=== PATIENT | male | born 1960 | race Caucasian/White ===

== ENCOUNTER 2018-02-06 12:00 | Observation (INO) | payer OTHER ==
[~2018-02-06] VITALS: Ht 175.3 cm; Wt 71.4 kg
[2018-02-06] MEDS ORDERED: SODIUM CHLORIDE 0.9% 1000ML 1,000 ML IV STA (12:19)
[2018-02-06] MEDS ORDERED: LIDOCAINE 1% BUFFERED INJ 20 ML VIAL INFIL ONE (12:30)
[2018-02-06] MEDS ORDERED: DOXY-300 PO (12:36)
[2018-02-06] MEDS ORDERED: ASPI81TA28 PO (12:36)
[2018-02-06 12:38] LABS: BASO % 0.2 %; BASO ABS # 0.02 K/uL (0-0.2); EOS % 0.1 %; EOS ABS # 0.01 K/uL (0-0.5); HEMATOCRIT 51.7 % (42-52); HEMOGLOBIN 18.1 g/dL (14.0-18.0); IG# 0.03 K/uL (0.00-0.02); LYMPH % 18.8 %; LYMPH ABS # 1.72 K/uL (1.2-3.4); MEAN CELL VOLUME 98.1 fL (80-100); MEAN CORPUSCULAR HEMOGLOBIN 34.3 pg (25-34); MEAN PLATELET VOLUME 9.6 fL (7.4-10.4); MONO % 6.5 %; NEUT % 74.1 %; NEUT ABS # 6.79 K/uL (1.4-6.5); PLATELET COUNT 212 K/uL (130-400); RED CELL DISTRIBUTION WIDTH CV 13.5 % (11.5-14.5); RED CELL DISTRIBUTION WIDTH SD 48.5 fL (36.4-46.3); WHITE BLOOD COUNT 9.17 K/uL (4.8-10.8)
--- NOTE | 2018-02-06 12:48 | DIAGNOSTIC IMAGING REPORT ---
CHEST ONE VIEW PORTABLE CLINICAL HISTORY: Altered mental status, weakness. Encephalopathy. COMPARISON STUDY: No previous studies for comparison. FINDINGS: The cardiac and mediastinal contours are normal. There is no evidence of focal pulmonary consolidation. There is no evidence of failure. No pleural effusions are visualized.[ IMPRESSION: No active disease in the chest. Electronically signed by: Barry Foster M.D. 02/06/2018 12:46 PM Dictated Date/Time: 02/06/2018 12:46 PM
[2018-02-06 12:51] LABS: INR 0.9 (0.9-1.1); PTT PATIENT 23.9 SECONDS (21.0-31.0)
[2018-02-06 13:05] LABS: ALBUMIN 3.7 gm/dl (3.4-5.0); ALKALINE PHOSPHATASE 92 U/L (45-117); ALT/SGPT 38 U/L (12-78); AST/SGOT 41 U/L (15-37); BLOOD UREA NITROGEN 10 mg/dl (7-18); CALCIUM 8.9 mg/dl (8.5-10.1); CARBON DIOXIDE 26 mmol/L (21-32); CKMB < 1.0 ng/ml (0.5-3.6); CREATININE 0.85 mg/dl (0.60-1.40); GLUCOSE 96 mg/dl (70-99); LIPASE 139 U/L (73-393); POTASSIUM 4.1 mmol/L (3.5-5.1); SODIUM 137 mmol/L (136-145); TOTAL PROTEIN 7.4 gm/dl (6.4-8.2)
--- NOTE | 2018-02-06 13:15 | DIAGNOSTIC IMAGING REPORT ---
HEAD WITHOUT CONTRAST (CT) CLINICAL HISTORY: 57 years-old Male with EVALUATE ALTERED MENTAL STATUS/WEAKNESS. Acute weakness with altered mental status TECHNIQUE: Multiple axial CT images of the head were obtained without contrast. A dose lowering technique was utilized adhering to the principles of ALARA. CT DOSE: 1380.10 mGycm COMPARISON: None. FINDINGS: No acute intracranial hemorrhage, midline shift, intracranial mass, hydrocephalus, territorial ischemia or abnormal extra-axial collection. Blayne cisterna magna. The calvarium is intact. Trace fluid within the mastoid air cells. Right mastoid air cells are clear. Mild mucosal thickening of the left sphenoid, left maxillary and bilateral ethmoid sinuses. Skull and soft tissues are unremarkable. The orbits are within normal limits. IMPRESSION: 1. No acute intracranial abnormality. 2. Mild paranasal sinus disease. The above report was generated using voice recognition software. It may contain grammatical, syntax or spelling errors. Electronically signed by: Baldo Mae M.D. 02/06/2018 1:14 PM Dictated Date/Time: 02/06/2018 1:10 PM
[2018-02-06 13:31] LABS: CSF GLUCOSE 60 mg/dl (40-70); CSF TOTAL PROTEIN 55.3 mg/dl (15.0-45.0)
[2018-02-06] MEDS ORDERED: IV FLUIDS COMPLETED PRN (15:45)
[2018-02-06] MEDS ORDERED: OPTIRAY 320 IV PRN (16:15)
--- NOTE | 2018-02-06 16:44 | History and Physical ---
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 History of Present Illness Source: patient, friend (lady friend) This is a 57-year-old white male, who is under recent care of Dr. Gómez Loving , with no significant past medical history who presents to [facility] with confusion x 2.5-3 weeks. He has not followed with a physician for many years. Of significant note back on 01/14/18 he presented to PCP secondary to headaches, myalgias, joint aches, chest pain, sob. Patient had thorough workup which included Lyme panel which was positive for IgG 10 bands and + IgM, CT brain on 01/20 which was relatively unremarkable, MRI on brain which showed are 2.8cm posterior fossa cyst, likely arachnoid cyst, increased periventricular white matter likely small vessel ischemic disease, mild sinusitis, vitamin B12 525, negative JAMESON, rheumatoid factor 11, vitamin D 59, H&H 17.9 and 53.8, white blood cell count 7.5, AST 54 sodium 141, potassium 4.8, BUN 9, creatinine 0.8, glucose 92. He denies history of tick or insect bite. He was employed through [email or web address] but has been off work since December. He was sent to neurology for further evaluation secondary to headaches, positive MRI by neurology Dr. Haider Lynne seen today and patient was observed to be confused. Confusion has been reported for the past 2-2.5 weeks therefore patient was sent to ED for further workup for possible Lyme encephalitis. Lady friend is at bedside, provides some history. Apparently over the past 2-2.5 weeks patient has become more confused, not acting himself, difficulty with short-term memory and activities of daily living. Per friend he has been getting lost, usually he is very neat and his house is a mass, staggering gait. Patient states he has not been himself since October which he took a week off from work symptoms seemed to go away. They came back in November therefore whenever he got "a medical card," he pursued medical attention. He further notes first thing when he wakes up in the morning drinks coffee he gets frontal headache, sweating, nausea that comes and goes. Overall he does not sleep well, decreased appetite, blurred vision increasing the past 2 weeks, he recently got new glasses but has not had an eye exam in over 2 years. He denies any fever, chills, lightheadedness, dizziness, upper respiratory symptoms , chest pain, palpitations, sob, knox, nausea, vomiting, diarrhea, abdominal pain. When asked about tobacco and alcohol use initially he stated that he would drink occasionally, with further investigation he stated he went to the club daily and will drink approximately 12-18 beers a week on average. His last drink was when starting his antibiotic on January 15, he has one dose of doxycycline left. Upon initial evaluation workup revealed unremarkable CMP except AST elevation 41, troponin, CK, lipase all within range, hemoglobin 18.1. LP was performed which showed elevated protein of 55.3, Gram stain is pending. Initial Lyme titer positive. Chest x-ray negative for acute disease and head CT showing mild paranasal disease but otherwise unremarkable. He is being admitted for further workup of encephalopathy. Past Medical/Surgical History Medical Problems: (1) Degenerative disc disease Status: Chronic (2) Hyperlipemia Status: Chronic (3) Tobacco abuse Status: Chronic Surgical Problems: (1) History of tonsillectomy Status: Chronic (2) History of tooth extraction Permanent Comment: top and bottom dentures Status: Chronic Family History Patient reports no known family medical history. FH: Father was alcoholic. "Had kidney and liver issues." Mother: from CHF and emphysema Social History Smoking Status: Current Every Day Smoker (approx 40pack year hx) Smokeless Tobacco Use: No Alcohol Use: occasionally (12-18 beers a week on average, "goes to the club daily.") Drug Use: marijuana (remote history, no recent use. ) Marital Status: single (but has a "lady friend.") Housing status: lives alone Occupational Status: unemployed (Up until December patient working for [email or web address]) Immunizations History of Influenza Vaccine: No Influenza Vaccine Date: Mar 07, 2017 History of Tetanus Vaccine?: Yes Tetanus Immunization Date: Sep 26, 1979 History of Pneumococcal: Yes History of Hepatitis B Vaccine: Unknown Allergies Coded Allergies: No Known Allergies (Unverified , 02/06/18) Home Medications Scheduled Aspirin (Aspirin Ec), 81 MG PO DAILY Doxycycline (Monohydrate) (Doxycycline), 1 CAP PO BID Review of Systems As noted per HPI, 10 systems reviewed and negative unless noted above. Physical Exam Vital Signs Date Time Temp Pulse Resp B/P (MAP) Pulse Ox O2 Delivery O2 Flow Rate FiO2 02/06/18 13:42 85 16 155/87 98 Room Air 02/06/18 12:38 94 02/06/18 12:02 37.2 109 17 169/97 96 Room Air General Appearance: WD/WN, no apparent distress Head: normocephalic, atraumatic Eyes: normal inspection, PERRL, EOMI, sclerae normal (mild conjunctival injection laterally ) ENT: normal ENT inspection (hard of hearing, left hearing aides at home), pharynx normal, + pertinent finding Neck: supple, no adenopathy, thyroid normal (Mucous members moist), no JVD, no carotid bruits, trachea midline Respiratory/Chest: chest non-tender, lungs clear, normal breath sounds, no respiratory distress, no accessory muscle use Cardiovascular: regular rate, rhythm, no edema, no gallop, no JVD, no murmur, normal peripheral pulses Abdomen/GI: normal bowel sounds, non tender, soft, no organomegaly, no pulsatile mass Back: no CVA tenderness, no muscle spasm, normal range of motion Extremities/Musculoskelatal: normal inspection, no calf tenderness, normal capillary refill, no pedal edema, normal range of motion, non-tender 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, no motor/sensory deficits, + abnormal cerebellar tests (Difficulty with fine motor movements), + abnormal gait (Shuffling gait, unsteady), + motor weakness (Upper extremity abductor/ adductor weakness to shoulder bilaterally), + disoriented (He is alert to self, year was January, initially thought he was in [employer] and reoriented to [employer]) Skin: normal color (Overall red color to face and anterior thorax), warm/dry, no rash Lymphatic: no adenopathy Diagnostics Laboratory Results Results Past 24 Hours Test 02/06/18 12:26 02/06/18 12:44 02/06/18 14:22 02/06/18 15:29 Range/Units White Blood Count 9.17 4.8-10.8 K/uL Red Blood Count 5.27 4.7-6.1 M/uL Hemoglobin 18.1 14.0-18.0 g/dL Hematocrit 51.7 42-52 % Mean Corpuscular Volume 98.1 80-100 fL Mean Corpuscular Hemoglobin 34.3 25-34 pg Mean Corpuscular Hemoglobin Concent 35.0 32-36 g/dl Platelet Count 212 130-400 K/uL Mean Platelet Volume 9.6 7.4-10.4 fL Neutrophils (%) (Auto) 74.1 % Lymphocytes (%) (Auto) 18.8 % Monocytes (%) (Auto) 6.5 % Eosinophils (%) (Auto) 0.1 % Basophils (%) (Auto) 0.2 % Neutrophils # (Auto) 6.79 1.4-6.5 K/uL Lymphocytes # (Auto) 1.72 1.2-3.4 K/uL Monocytes # (Auto) 0.60 0.11-0.59 K/uL Eosinophils # (Auto) 0.01 0-0.5 K/uL Basophils # (Auto) 0.02 0-0.2 K/uL RDW Standard Deviation 48.5 36.4-46.3 fL RDW Coefficient of Variation 13.5 11.5-14.5 % Immature Granulocyte % (Auto) 0.3 % Immature Granulocyte # (Auto) 0.03 0.00-0.02 K/uL Prothrombin Time 9.8 9.0-12.0 SECONDS Prothromb Time International Ratio 0.9 0.9-1.1 Activated Partial Thromboplast Time 23.9 21.0-31.0 SECONDS Partial Thromboplastin Ratio 0.9 Sodium Level 137 136-145 mmol/L Potassium Level 4.1 3.5-5.1 mmol/L Chloride Level 105 98-107 mmol/L Carbon Dioxide Level 26 21-32 mmol/L Anion Gap 6.0 3-11 mmol/L Blood Urea Nitrogen 10 7-18 mg/dl Creatinine 0.85 0.60-1.40 mg/dl Est Creatinine Clear Calc Drug Dose 95.9 ml/min Estimated GFR () 112.1 Estimated GFR (Non- 96.7 BUN/Creatinine Ratio 11.9 10-20 Random Glucose 96 70-99 mg/dl Calcium Level 8.9 8.5-10.1 mg/dl Magnesium Level 2.3 1.8-2.4 mg/dl Total Bilirubin 0.7 0.2-1 mg/dl Direct Bilirubin 0.2 0-0.2 mg/dl Aspartate Amino Transf (AST/SGOT) 41 15-37 U/L Alanine Aminotransferase (ALT/SGPT) 38 12-78 U/L Alkaline Phosphatase 92 45-117 U/L Total Creatine Kinase 75 39-308 U/L Creatine Kinase MB < 1.0 0.5-3.6 ng/ml Creatine Kinase MB Ratio 0-3.0 Troponin I < 0.015 0-0.045 ng/ml Total Protein 7.4 6.4-8.2 gm/dl Albumin 3.7 3.4-5.0 gm/dl Lipase 139 73-393 U/L Thyroid Stimulating Hormone (TSH) 0.736 0.300-4.500 uIu/ml Lyme Disease IgG Antibody POS NEG Lyme Disease IgM Antibody EQUIVOCAL NEG CSF Color COLORLESS CSF Appearance CLEAR CSF WBC 1 0-5 /uL CSF RBC 0 0 /uL CSF Xanthrochromic NO XANTHOCHROMIA CSF Cell Count Tube # 4 CSF Chemistry Tube # 2 CSF Glucose 60 40-70 mg/dl CSF Total Protein 55.3 15.0-45.0 mg/dl Urine Color YELLOW Urine Appearance CLEAR CLEAR Urine pH 6.0 4.5-7.5 Urine Specific [place] 1.015 1.000-1.030 Urine Protein NEG NEG Urine Glucose (UA) NEG NEG Urine Ketones NEG NEG Urine Occult Blood NEG NEG Urine Nitrite NEG NEG Urine Bilirubin NEG NEG Urine Urobilinogen NEG NEG Urine Leukocyte Esterase NEG NEG Urine WBC (Auto) 1-5 0-5 /hpf Urine RBC (Auto) 0-4 0-4 /hpf Urine Hyaline Casts (Auto) 0 0-5 /lpf Urine Epithelial Cells (Auto) 5-10 0-5 /lpf Urine Bacteria (Auto) NEG NEG Test 02/06/18 15:34 Range/Units Microbiology Results 02/06/18 Gram Stain - Final, Resulted 02/06/18 CSF Culture, Resulted Pending Diagnostic Radiology CT Head: IMPRESSION: 1. No acute intracranial abnormality. 2. Mild paranasal sinus disease. CXR normal EKG ECG: NSR, vent rate 88, few PVC, QTC 454ms Impression Assessment and Plan (1) Encephalopathy acute Acute Assessment & Plan: This is a 57-year-old white male, who is under recent care of Dr. Gómez Loving, with no significant past medical history who presents to [facility] with confusion x 2.5-3 weeks. Patient diagnosed with Lyme disease on 01/15/18 and initiated on doxycycline 100 mg p.o. twice daily 21 days. He has completed 41 doses of doxycycline orally. Upon initial evaluation workup revealed unremarkable CMP except AST elevation 41, troponin, CK, lipase all within range, hemoglobin 18.1. LP was performed which showed elevated protein of 55.3 Gram stain is pending. Initial Lyme titer positive. Chest x-ray negative for acute disease and head CT showing mild paranasal disease but otherwise unremarkable. He is being admitted for further workup of encephalopathy. Ddx: Lyme encephalitis, HSV encephalitis, Wernicke encephalopathy, ETOH withdrawal, WNV encephalitis, progressive dementia, TIA, CVA -Admit to med/surg -Consult Neurology, seen by Dr. Lynne in office today, deferred to ED for further evaluation -Consult Infectious Disease Dr. Mcgowan -Stop po doxy. Initiate Rocephin 2g daily. -check B12, B1, folic acid, ggt -Start IV Banana bag -await LP gram stain results -CT Chest/Abd/Pelvis (2) Lyme disease Assessment & Plan: -Dx 01/15/18 by outpatient lab -+IGM and 10 bands of IGG. -Treated with oral doxycycline x 41 doses. -Start IM Rocephin 2g daily -Infectious disease consulted (3) Tobacco abuse Assessment & Plan: approx 40 pack year hx Would benefit from smoking cessation therapy. (4) Elevated blood pressure reading without diagnosis of hypertension Assessment & Plan: -elevated bp x 2 readings. -BP 144/[address] Lynne Office today -He has not followed routinely with PCP. -New to Dr. Loving since November 2017. -Continue to monitor. He may need initated on oral antihypertensives (5) Hyperlipemia Assessment & Plan: Last cholesterol panel on 01/15/18 showed total cholesterol 228, LDL 132, HDL 59, Triglycerides 184. Resuscitation Status DNR VTE Prophylaxis Will order VTE Prophylaxis: Yes (SCDS) Note Agree with above H and P. Briefly 57 M was sent in by neurology for confusion. Marie says he is getting forgetful since october this year. Intially he took week off from work and seemed better. But aurelia began forgetful in November and he was fired from work. He saw PCP and was found positive for lyme disease and was started on po doxycyoine. Also CT head and MRI head was done which showed arachnoid cust and small vessel disease. He was also getting headaches and sweating in the mornings. [id number] gait issues. He went to see neurology today and was advised to go to Er for further workup.He says drink alcohol 12-18 beers a week but didnot drink since he started on doxycycline(0ne dose of doxy left) Currently resting comfortably and hemodynamically stable. 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 LP showed elevated protein To repeat MRI head with contrast, CT abd/pelvis and ct chest to look for any paraneoplastic process HIV test ID consulted started on IV Rocephin Neurology on board Alcoholism Last drink several days ago f/u vitamin B! and vitamin b12 levels started on banana bag iv Ativan prn monitor for withdrawal HTN clonidine prn may need antihypertensive on discharge.
--- NOTE | 2018-02-06 17:17 | DIAGNOSTIC IMAGING REPORT ---
MRI OF THE BRAIN COMBO CLINICAL HISTORY: Acute encephalopathy. Dizziness. Change in mental status. COMPARISON STUDY: CT of the brain dated 02/06/2018. TECHNIQUE: MRI of the brain was performed utilizing various T1 and T2-weighted sequences in the axial, sagittal, and coronal planes. Contrast-enhanced sequences were acquired following the administration of 7 cc of Gadavist. FINDINGS: Brain parenchyma: There is minimal subcortical and periventricular microangiopathic change. There is a 2.3 x 2.9 cm round cystic structure identified in the central cerebellum. This follows CSF signal intensity on all sequences. There is no nodular or enhancing component of this lesion. There is no hemorrhage or mass effect. There is no restricted diffusion to suggest acute ischemia. No enhancing mass lesion is identified on the postcontrast images. Levin-white matter differentiation is preserved. No extra-axial fluid collection is seen. The cerebellar tonsils are normal in configuration. Ventricles, sulci, and cisterns: Normal in configuration. Pituitary and sella: Unremarkable. Intracranial vasculature: Normal flow voids are maintained at the skull base. Orbits: The bony orbits are grossly intact. Orbital contents are normal in appearance. Sinuses and mastoids: There is mild mucosal thickening and fluid within the left maxillary antrum. Trace mucosal thickening is seen in the frontal and ethmoid sinuses. The mastoid air cells are clear. Calvarium: Unremarkable. Cervical cord: Partially visualized cervical spinal cord is normal in morphology and signal intensity. IMPRESSION: 1. There is no hemorrhage, midline shift, or evidence of acute ischemia. 2. There is a 2.9 cm round cystic lesion identified in the central cerebellum. This follows CSF signal intensity on all sequences and shows no nodular or enhancing component. There is no significant mass effect. The appearance is most suggestive of an arachnoid cyst. A cystic neoplasm is considered much less likely given the lack of a soft tissue component/nodule. Nonemergent neurosurgical follow-up is recommended. A precautionary follow-up MRI of the brain in 3-6 months is also recommended for reassessment. Electronically signed by: Tarik Kirby M.D. 02/06/2018 5:16 PM Dictated Date/Time: 02/06/2018 5:01 PM
--- NOTE | 2018-02-06 17:28 | DIAGNOSTIC IMAGING REPORT ---
CT SCAN OF THE CHEST, ABDOMEN, AND PELVIS WITH IV CONTRAST CLINICAL HISTORY: Change in mental status. Encephalopathy. COMPARISON STUDY: Chest x-ray dated 02/06/2018. TECHNIQUE: Following the IV administration of 92 of Optiray 320, CT scan of the chest, abdomen, and pelvis was performed from the thoracic inlet to the proximal femora. Images are reviewed in the axial, sagittal, and coronal planes. IV contrast was administered without complication. A dose lowering technique was utilized adhering to the principles of ALARA. CT DOSE: 496.93 mGy.cm FINDINGS: CHEST: Thyroid: Imaged portions of the thyroid gland are normal in size and attenuation. Thoracic aorta: There is mild atherosclerotic calcification of the thoracic aorta, which is normal in caliber and demonstrates bovine variant arch anatomy. No dissection is seen. Heart: The heart is top normal in size and without pericardial effusion. There are coronary artery calcifications. The pulmonary trunk is normal in caliber. Lungs and pleural spaces: Emphysematous change is identified. No airspace consolidation or pleural effusion is seen. The trachea is clear. Secretions are seen within the mainstem bronchi. Mild diffuse peribronchial thickening is noted. A punctate calcified granuloma is seen in the right lower lobe. Mediastinum: There is no mediastinal lymphadenopathy. Shannon: Clear. Axillae: There is no axillary lymphadenopathy. Bony thorax: No lytic or blastic lesions are identified. ABDOMEN AND PELVIS: Liver: The contrast-enhanced liver is enlarged, measuring 18.4 cm in length. The liver demonstrates diffusely diminished attenuation consistent with hepatic steatosis. Mild nodularity of the surface contour suggests early change of cirrhosis. There is no intrahepatic or ductal dilatation. The hepatic veins and portal veins are patent. Gallbladder: Unremarkable. Spleen: Normal in size and attenuation. Pancreas: Unremarkable. Adrenal glands: Unremarkable. Kidneys: The contrast enhanced kidneys are normal in size and without hydronephrosis. The kidneys enhance symmetrically. A retroaortic left renal vein is incidentally noted. Abdominal vasculature: The abdominal aorta is normal in course and caliber noting moderate atherosclerotic calcification. Bowel: There is mild colonic diverticulosis without CT evidence of acute diverticulitis. No bowel obstruction is seen. The appendix is well-visualized and normal. Peritoneum: There is no intraperitoneal free air or abdominal ascites. There is a small fat-containing umbilical hernia. Lymphadenopathy: None. Pelvic viscera: The prostate gland is mildly enlarged and heterogeneous. The bladder is normal as imaged. Excreted contrast is noted in the bladder lumen. Skeletal structures: There is mild lumbosacral spondylosis. No lytic or blastic lesions are seen. IMPRESSION: 1. Emphysema. 2. There is no airspace consolidation or pleural effusion. 3. Mild diffuse peribronchial thickening suggests reactive air disease. Clinical correlation will be required. 4. There are no acute infectious or inflammatory findings in the abdomen or pelvis. 5. The liver is enlarged and steatotic. 6. There is nodularity of the hepatic surface contour suggesting early changes of cirrhosis. 7. Mild colonic diverticulosis without CT evidence of acute diverticulitis. 8. Additional findings as above. Electronically signed by: Tarik Kirby M.D. 02/06/2018 5:27 PM Dictated Date/Time: 02/06/2018 5:16 PM
[2018-02-06 18:02] VITALS: BP 170/91; PULSE 77; TEMP 36.7; O2SAT 96
[2018-02-06] MEDS: CEFTRIAXONE SOD INJ 2,000 MG in DEXTROSE 5% 50ML 50 ML IV SCH (18:25)
[2018-02-06] MEDS ORDERED: MULTI-VITAMIN INFUSION INJ 10 ML, THIAMINE HCL INJ 100 MG, FoLIC ACID INJ 1 MG in SODIU... IV ONE (18:30)
[2018-02-06 18:31] VITALS: BP_SYST 161; BP_SYST 170; BP_DIAS 90; BP_DIAS 91; PULSE 71; PULSE 77; TEMP 36.7; O2SAT 96; Ht 175.3 cm; Wt 71.4 kg
[2018-02-06] MEDS: ACETAMINOPHEN 325 MG TAB PO PRN (18:41)
[2018-02-06 19:42] VITALS: BP 164/91; PULSE 74
[2018-02-06] MEDS ORDERED: LORAZEPAM INJ 1 MG in SYRINGE 0.5 ML IV PRN (20:30)
[2018-02-06 22:43] VITALS: BP 155/75; PULSE 68; TEMP 36.8; O2SAT 95
[2018-02-06 23:16] VITALS: BP 170/99; PULSE 70; TEMP 36.7; O2SAT 95
[2018-02-07] MEDS: CLONIDINE HCL 0.1 MG TAB PO PRN ×2 (05:06→06:02)
[2018-02-07 06:41] VITALS: BP 132/79
[2018-02-07 07:13] VITALS: BP 133/81; PULSE 69; TEMP 36.8; O2SAT 95
[2018-02-07] MEDS: ASPIRIN 81 MG ECTAB PO SCH (07:52)
--- NOTE | 2018-02-07 13:09 | NEUROLOGY CONSULTATION ---
DATE OF CONSULTATION: 02/07/2018 REASON FOR CONSULTATION: Change in mental status. HISTORY OF PRESENT ILLNESS: Mr. Matthews was seen in our office by my partner, Dr. Lynne, yesterday. History was given of an about 2-month history of change in mental status. About in October, the patient had some mild headaches and some mild confusion as well as joint pain, which resolved, and then in November or December, he developed some increased confusion, numbness in the back of his head, numbness in his legs, some mild generalized weakness, night sweats, but no peter fever and no rash. He was let go from his job after he called in sick twice. He has had frequent falls. He complains of blurred vision, but he has not had any blind spots. There is no incontinence. He had decreased oral intake. He drinks alcohol but indicates he has not been drinking alcohol for the last 3 weeks. Three weeks ago, a screening Lyme showed evidence of Lyme exposure, and he was started on doxycycline. Today, having received ceftriaxone intravenously, he feels markedly improved with mild headache. His database is notable for an MRI of the brain, which shows a posterior fossa arachnoid cyst, otherwise unremarkable for age. CT of the chest, abdomen and pelvis showed emphysema, diffuse peribronchial thickening suggestive of reactive airway disease, the liver is enlarged and steatotic, nodularity of the hepatic surface contour suggesting early changes of cirrhosis, mild colonic diverticulosis, without acute diverticulitis. Lumbar puncture: CSF was clear, colorless, white count was 1, red cells 0, total protein mildly elevated at 55.3. RPR nonreactive. Repeat Lyme titer pending. HIV pending. Hepatitis C screen negative. Urinalysis unremarkable. TSH, B12, folate normal. Ammonia 31. Thiamine pending. Chemistry profile notable for an AST of 41, otherwise unremarkable. White count was 9.17, H&H 18/51, platelet count 212. PAST MEDICAL HISTORY: Notable for degenerative disk disease. PAST SURGICAL HISTORY: Dental surgery, tonsillectomy. FAMILY HISTORY: No family history of cognitive dysfunction. SOCIAL HISTORY: The patient is single, lives alone. 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 Smokes. Drinks alcohol occasionally. MEDICATIONS: His medications at home are doxycycline. Current medications are aspirin, clonidine, lorazepam, ceftriaxone, Tylenol, and IV fluids. PHYSICAL EXAMINATION: VITAL SIGNS: 36.8, 69, 18, 133/81, 95%. GENERAL: Patient is awake and alert. His speech and language are normal. He is oriented x3 and has 3/3 memory at 3 minutes. He has no difficulty with language. He knows who the President is, and he is good about history giving. HEENT: Pupils are equal. I could not reliably visualize the optic nerves. There are normal stevens, motility, facial symmetry. No evidence of Ricks's palsy. Normal facial sensation as well as scalp sensation. He is mildly diffusely thin. NECK: Supple. CARDIOVASCULAR: I do not appreciate any heart murmurs. RESPIRATORY: Lungs are clear. GASTROINTESTINAL: His abdomen is soft and nontender. EXTREMITIES: His lower extremities are mildly diffusely thin but not focally atrophic, with normal tone. His strength is full in the upper. There may be some mild weakness in the lower. Lower extremities are mildly tremulous. Reflexes are diffusely brisk, more so in the lower than the upper. There is no clonus. Toes are downgoing. No crossed adductor. [id number] is not tremulous. Heel to anderson is mildly tremulous. Gait is fairly unremarkable for age. Sensory examination notable for decreased light touch and temperature below the left knee. IMPRESSION: Encephalopathy, etiology somewhat unclear although the patient sounds markedly improved having received IV ceftriaxone. There is no evidence of a P[employer]INTENANCE meningitis. The elevated total protein is of unclear etiology, could be seen in a radiculitis. The differential is broad in addition to Lyme disease including again if nonresponsive, perineoplastic, autoimmune. If he does not continue to improve, would perform an EEG but would consider empiric treatment with IV steroids, Solu-Medrol 1 g for 3 days. At present, I think he is improving and that is not necessary, and we will follow with you. Rec MRI c spine bc of brisk reflexes and post scalp numbness and mri l spine bc of LLE numbness MTDD
--- NOTE | 2018-02-07 14:16 | EMERGENCY ROOM VISIT NOTE ---
History Report prepared by Shane: Triston Butler Under the Supervision of: Dr. Santy Nunez D.O. 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 Patient was referred to the ER by Dr. Lynne with concern for encephalopathy. Patient is present with friend. Friend states the patient was diagnosed with Lyme disease. She does not know when the patient was diagnosed but states he just finished his first course of Doxycycline. Patient states he is "losing his mind", "losing his memory", and that his "head is pounding" in the front. He adds he has been falling down more recently and has been experiencing body aches. Patient states he had an MRI of his brain last week. Past medical history includes severe degenerative disc disease. Patient states he used to work for a [employer] company. Friend adds that the patient used to be a clean person but now his house is very messy. She states he also used to enjoy cooking but does not appear to anymore. Source of History: patient, friend Onset: Recent Position: head Timing: intermittent Modifying Factors (Relieving): other (None) Associated Symptoms: + headache, + weakness Review of Systems See HPI for pertinent positives & negatives. A total of 10 systems reviewed and were otherwise negative. Past Medical & Surgical Medical Problems: (1) Degenerative disc disease (2) Hyperlipemia (3) Tobacco abuse Surgical Problems: (1) History of tonsillectomy (2) History of tooth extraction Family History Patient reports no known family medical history. Social History Smoking Status: Current Every Day Smoker Occupation Status: unemployed Current/Historical Medications Scheduled Aspirin (Aspirin Ec), 81 MG PO DAILY Doxycycline (Monohydrate) (Doxycycline), 1 CAP PO BID Allergies Coded Allergies: No Known Allergies (Unverified , 02/06/18) Physical Exam Vital Signs Date Time Temp Pulse Resp B/P (MAP) Pulse Ox O2 Delivery O2 Flow Rate FiO2 02/06/18 13:42 85 16 155/87 98 Room Air 02/06/18 12:38 94 02/06/18 12:02 37.2 109 17 169/97 96 Room Air Physical Exam VITAL SIGNS: were reviewed as above. GENERAL:Non-toxic in appearance. SKIN: Warm dry and pink. HEAD: Normocephalic and atraumatic. OROPHARYNX: Is clear and moist NECK: Supple without lymphadenopathy or meningismus. LUNGS: clear. HEART: Regular rate and rhythm. ABDOMEN: Soft and nontender. EXTREMITIES: Warm and well perfused. NEUROLOGICALLY: Awake alert and oriented without focal deficit. Cranial nerves 2 -12 are intact. There is no pronator drift. Cerebellar testing is within normal limits. There is no nystagmus. There is no facial droop. Speech is clear. Vision is grossly normal. MUSCULOSKELETAL: Good muscle tone. No evidence of trauma. Medical Decision & Procedures ER Provider Diagnostic Interpretation: Radiology results as stated below per my review and radiologist interpretation: CHEST ONE VIEW PORTABLE CLINICAL HISTORY: Altered mental status, weakness. Encephalopathy. COMPARISON STUDY: No previous studies for comparison. FINDINGS: The cardiac and mediastinal contours are normal. There is no evidence of focal pulmonary consolidation. There is no evidence of failure. No pleural effusions are visualized.[ IMPRESSION: No active disease in the chest. Electronically signed by: Barry Foster M.D. 02/06/2018 12:46 PM HEAD WITHOUT CONTRAST (CT) CLINICAL HISTORY: 57 years-old Male with EVALUATE ALTERED MENTAL STATUS/WEAKNESS. Acute weakness with altered mental status TECHNIQUE: Multiple axial CT images of the head were obtained without contrast. A dose lowering technique was utilized adhering to the principles of ALARA. CT DOSE: 1380.10 mGycm COMPARISON: None. FINDINGS: No acute intracranial hemorrhage, midline shift, intracranial mass, hydrocephalus, territorial ischemia or abnormal extra-axial collection. Blayne cisterna magna. The calvarium is intact. Trace fluid within the mastoid air cells. Right mastoid air cells are clear. Mild mucosal thickening of the left sphenoid, left maxillary and bilateral ethmoid sinuses. Skull and soft tissues are unremarkable. The orbits are within normal limits. IMPRESSION: 1. No acute intracranial abnormality. 2. Mild paranasal sinus disease. The above report was generated using voice recognition software. It may contain grammatical, syntax or spelling errors. Electronically signed by: Baldo Mae M.D. 02/06/2018 1:14 PM Laboratory Results 02/06/18 12:26 Red Blood Count 5.27, Mean Corpuscular Volume 98.1, Mean Corpuscular Hemoglobin 34.3, Mean Corpuscular Hemoglobin Concent 35.0, Mean Platelet Volume 9.6, Neutrophils (%) (Auto) 74.1, Lymphocytes (%) (Auto) 18.8, Monocytes (%) (Auto) 6.5, Eosinophils (%) (Auto) 0.1, Basophils (%) (Auto) 0.2, Neutrophils # (Auto) 6.79, Lymphocytes # (Auto) 1.72, Monocytes # (Auto) 0.60, Eosinophils # (Auto) 0.01, Basophils # (Auto) 0.02 02/06/18 12:26 Test 02/06/18 12:26 02/06/18 12:44 02/06/18 14:22 White Blood Count 9.17 K/uL (4.8-10.8) Red Blood Count 5.27 M/uL (4.7-6.1) Hemoglobin 18.1 g/dL (14.0-18.0) Hematocrit 51.7 % (42-52) Mean Corpuscular Volume 98.1 fL (80-100) Mean Corpuscular Hemoglobin 34.3 pg (25-34) Mean Corpuscular Hemoglobin Concent 35.0 g/dl (32-36) Platelet Count 212 K/uL (130-400) Mean Platelet Volume 9.6 fL (7.4-10.4) Neutrophils (%) (Auto) 74.1 % Lymphocytes (%) (Auto) 18.8 % Monocytes (%) (Auto) 6.5 % Eosinophils (%) (Auto) 0.1 % Basophils (%) (Auto) 0.2 % Neutrophils # (Auto) 6.79 K/uL (1.4-6.5) Lymphocytes # (Auto) 1.72 K/uL (1.2-3.4) Monocytes # (Auto) 0.60 K/uL (0.11-0.59) Eosinophils # (Auto) 0.01 K/uL (0-0.5) Basophils # (Auto) 0.02 K/uL (0-0.2) RDW Standard Deviation 48.5 fL (36.4-46.3) RDW Coefficient of Variation 13.5 % (11.5-14.5) Immature Granulocyte % (Auto) 0.3 % Immature Granulocyte # (Auto) 0.03 K/uL (0.00-0.02) Prothrombin Time 9.8 SECONDS (9.0-12.0) Prothromb Time International Ratio 0.9 (0.9-1.1) Activated Partial Thromboplast Time 23.9 SECONDS (21.0-31.0) Partial Thromboplastin Ratio 0.9 Anion Gap 6.0 mmol/L (3-11) Est Creatinine Clear Calc Drug Dose 95.9 ml/min Estimated GFR () 112.1 Estimated GFR (Non- 96.7 BUN/Creatinine Ratio 11.9 (10-20) Calcium Level 8.9 mg/dl (8.5-10.1) Magnesium Level 2.3 mg/dl (1.8-2.4) Total Bilirubin 0.7 mg/dl (0.2-1) Direct Bilirubin 0.2 mg/dl (0-0.2) Aspartate Amino Transf (AST/SGOT) 41 U/L (15-37) Alanine Aminotransferase (ALT/SGPT) 38 U/L (12-78) Alkaline Phosphatase 92 U/L (45-117) Total Creatine Kinase 75 U/L (39-308) Creatine Kinase MB < 1.0 ng/ml (0.5-3.6) Creatine Kinase MB Ratio (0-3.0) Troponin I < 0.015 ng/ml (0-0.045) Total Protein 7.4 gm/dl (6.4-8.2) Albumin 3.7 gm/dl (3.4-5.0) Lipase 139 U/L (73-393) Lyme Disease IgG Antibody POS (NEG) CSF Color COLORLESS CSF Appearance CLEAR CSF WBC 1 /uL (0-5) CSF RBC 0 /uL (0) CSF Xanthrochromic NO XANTHOCHROMIA CSF Cell Count Tube # 4 CSF Chemistry Tube # 2 CSF Glucose 60 mg/dl (40-70) CSF Total Protein 55.3 mg/dl (15.0-45.0) Urine Color YELLOW Urine Appearance CLEAR (CLEAR) Urine pH 6.0 (4.5-7.5) Urine Specific [place] 1.015 (1.000-1.030) Urine Protein NEG (NEG) Urine Glucose (UA) NEG (NEG) Urine Ketones NEG (NEG) Urine Occult Blood NEG (NEG) Urine Nitrite NEG (NEG) Urine Bilirubin NEG (NEG) Urine Urobilinogen NEG (NEG) Urine Leukocyte Esterase NEG (NEG) Urine WBC (Auto) 1-5 /hpf (0-5) Urine RBC (Auto) 0-4 /hpf (0-4) Urine Hyaline Casts (Auto) 0 /lpf (0-5) Urine Epithelial Cells (Auto) 5-10 /lpf (0-5) Urine Bacteria (Auto) NEG (NEG) Laboratory results as stated above per my review. Medications Administered Medications (Trade) Dose Ordered Sig/Terence Route Start Time Stop Time Status Last Admin Dose Admin Sodium Chloride 1,000 ml @ 999 mls/hr Q1H1M STAT IV 02/06/18 12:19 02/06/18 13:19 DC 02/06/18 12:30 999 MLS/HR Procedure Lumbar Puncture Indication: Confusion. Verbal consent was obtained after the risks and benefits were explained, including but not limited to headache, bleeding/clotting, scarring, infection, pain, and bone/joint/nerve damage. At this time, the risks of the procedure are less than the risks of NOT performing the procedure. A time out was taken and the correct patient and site identified. The patient was placed in the left lateral recumbent position and the back was prepped with betadine and draped in the standard fashion. The L3 intervertebral space was identified, anesthetized locally with 1% lidocaine without epinephrine, and the spinal needle was inserted through the skin with the bevel parallel to the dural fibers. The needle was carefully advanced into the lumbar cistern and 4 tubes of 1cc each CSF was obtained. The stylet was replaced and the needle was removed. A bandaid was placed and the patient was placed in the supine position. The patient tolerated the procedure well and there were no complications. ECG Per My Interpretation Indication: weakness Rate (beats per minute): 88 Rhythm: sinus rhythm Findings: PAC, no ectopy, other (No ST elevation) ED Course 1212: Previous medical records were reviewed. The patient was evaluated in room C10. A complete history and physical examination was performed. 1219: Sodium Chloride 1000 ml @ 999 mls/hr IV 1230: Lidocaine HCl 20ml INFIL 1426: On reevaluation, the patient is resting comfortably. I discussed the results and findings with him. He verbalized agreement of the treatment plan. I spoke with Kiesha Quiñones PA-C of the [facility]. The patient will be evaluated for further management and care. Medical Decision Differential includes acute coronary syndrome, myocardial infarction, CVA, TIA, anemia, infection, pneumonia, UTI, pyelonephritis, poor nutrition, dehydration, electrolyte disturbance,hypoglycemia. This is a 57-year-old male who is brought to the emergency department after being seen by neurology services. The patient has had some recent memory issues. He was recently diagnosed with Lyme disease and has been on doxycycline. He was sent over by the gastroenterology services for further evaluation and care. His exam was relatively unremarkable. Details listed above. The patient had a lumbar puncture that did not show any evidence of Lyme disease or meningitis. Blood work was unremarkable. Lyme test was positive for IgG and equivocal for IgM. The patient will be seen by the hospitalist service for further inpatient evaluation and care. Medication Reconcilliation Current Medication List: was personally reviewed by me Blood Pressure Screening Patient's blood pressure: Elevated blood pressure Referred to hospitalist. Consults Time Called: 1412 Consulting Physician: Kiesha Turcios Hospitalist Returned Call: [phone] Discussed the patient's case. The patient will be evaluated for further treatment and disposition. Impression Primary Impression: Confusion Additional Impressions: Memory loss Lyme disease Scribe Attestation The scribe's documentation has been prepared under my direction and personally reviewed by me in its entirety. I confirm that the note above accurately reflects all work, treatment, procedures, and medical decision making performed by me. Departure Information Dispostion Being Evaluated By Hospitalist Forms HOME CARE DOCUMENTATION FORM, IMPORTANT VISIT INFORMATION, WORK / SCHOOL INSTRUCTIONS Patient Instructions My [facility] Problem Qualifiers
--- NOTE | 2018-02-07 14:20 | DIAGNOSTIC IMAGING REPORT ---
MRI OF THE LUMBAR SPINE WITHOUT IV CONTRAST CLINICAL HISTORY: Left lower extremity numbness. Reported history of Lyme disease. COMPARISON STUDY: Abdominal CT dated 02/06/2018. TECHNIQUE: MRI of the lumbar spine is performed utilizing various T1 and T2-weighted sequences in the axial and sagittal planes. IV contrast was not measured for this examination. FINDINGS: Lumbar spine: Vertebral body height and alignment are maintained throughout the lumbar spine. Marrow signal intensity is heterogeneous. Small anterior osteophytes are seen throughout. Degenerative endplate edema is noted at L2-L3. Chronic degenerative endplate change is noted at L5-S1. The transverse and spinous processes appear intact. There is no evidence of spondylolysis. Intervertebral discs: There is degenerative disc desiccation seen throughout the lumbar spine. Moderate to advanced loss of height is seen at L5-S1. Only mild loss of height is seen at the remaining lumbar levels. Spinal cord: The visualized spinal cord is normal in morphology and signal intensity. The conus medullaris terminates at the level of L1. The nerve roots of the cauda equina are normal in morphology. L1-L2: Unremarkable. L2-L3: There is a small posterior disc bulge. There is no significant acquired compromise of the central canal. There is minimal bilateral subarticular stenosis. The neural foramina are patent. L3-L4: There is a small posterior disc bulge eccentric to the right with annular fissure. The central canal measures up to 8 mm. This is largely on a congenital basis. There is no significant acquired central canal stenosis. There is right-sided subarticular stenosis. The disc bulge abuts the transiting bilateral L4 nerve roots and may also abut the exiting right L3 nerve root. The neural foramina are patent. L4-L5: There is minimal posterior disc bulge with annular fissure. There is no significant acquired compromise of the central canal. There is bilateral subarticular stenosis. The disc bulge may impinge on the exiting bilateral L4 and the transiting bilateral L5 nerve roots. Facet arthropathy is of no consequence. The neural foramina are patent. L5-S1: There is anterior disc protrusion at this level. There is only mild posterior disc bulge and annular fissure. There is no significant acquired compromise of the central canal. There is bilateral subarticular stenosis. The disc bulge likely abuts the exiting bilateral L5 and the transiting bilateral S1 nerve roots. Facet arthropathy causes mild bilateral neural foraminal stenosis. Sacrum: The visualized sacrum is normal in morphology and signal intensity. Soft tissues: The paraspinous musculature is normal in appearance. There is mild interspinous edema at L2-L3. The retroperitoneal structures are normal as visualized. IMPRESSION: 1. There is no disc herniation or significant acquired compromise of the central canal. 2. Multilevel spondylosis as above. See discussion for detailed [id number] analysis. 3. Degenerative disc disease and endplate change as above. 4. There is nonspecific interspinous soft tissue edema seen at L2-L3. This may be related to recent instrumentation. Clinical correlation will be required. Dictated: 02/07/2018 1:54 PM Transcribed: 02/07/2018 2:19 PM [email or web address] Electronically signed by: Tarik Kirby M.D. 02/07/2018 2:40 PM Dictated Date/Time: 02/07/2018 1:54 PM
[2018-02-07 15:02] VITALS: BP 134/80; PULSE 73; TEMP 37; O2SAT 96
--- NOTE | 2018-02-07 15:22 | DIAGNOSTIC IMAGING REPORT ---
MRI OF THE CERVICAL SPINE WITHOUT IV CONTRAST CLINICAL HISTORY: Numbness in the back of the head and left lower extremity. Reported history of Lyme disease. COMPARISON STUDY: MRI of the brain dated 02/06/2018. TECHNIQUE: MRI of the cervical spine is performed utilizing various T1 and T2-weighted sequences in the axial and sagittal planes. IV contrast was not administered for this examination. FINDINGS: Cervical spine: Vertebral body height is maintained throughout the cervical spine. There is minimal anterolisthesis at C4-C5. Alignment is otherwise preserved. There is straightening of the cervical lordosis. Small anterior osteophytes are seen throughout. Marrow signal intensity is mildly heterogeneous. Chronic degenerative endplate change is noted at C5-C6. The spinous processes appear intact. The atlantodental articulation appears maintained. Intervertebral discs: Degenerative disc desiccation is seen throughout the cervical spine. Moderate loss of height is noted at C5-C6 and C6-C7. Only mild disc space narrowing is seen at the remaining cervical levels. Spinal cord: The cervical spinal cord is normal in morphology and signal intensity. C2-C3: Mild facet arthropathy is of no consequence. The central canal and neural foramina are patent. C3-C4: There is a small posterior disc-osteophyte complex. This minimally effaces the ventral subarachnoid space. Mild facet arthropathy is of no consequence. The neural foramina are patent. C4-C5: A posterior disc-osteophyte complex effaces the ventral subarachnoid space. Uncovertebral and facet arthropathy causes mild left neural foraminal stenosis. C5-C6: A posterior disc-osteophyte complex abuts the ventral cord. Uncovertebral and facet arthropathy causes moderate bilateral neural foraminal stenosis. C6-C7: A posterior disc-osteophyte complex abuts the ventral cord. Uncovertebral and facet arthropathy causes moderate to severe bilateral neural foraminal stenosis. C7-T1: Unremarkable. Soft tissues: The prevertebral and paraspinous soft tissues are normal in appearance. A 1.8 cm sebaceous cyst is noted in the upper back at the level of C7. Brain parenchyma: A cystic lesion within the cerebellum is unchanged from yesterday's MRI of the brain. See report of that examination for detailed findings. Partially imaged brain parenchyma at the skull base is otherwise grossly unremarkable. IMPRESSION: 1. The cervical spinal cord is normal in morphology and signal intensity. 2. Cervical spondylosis as above, greatest at C5-C6 and C6-C7. See discussion for detailed [id number] analysis. 3. Additional findings as above. Dictated: 02/07/2018 2:45 PM Transcribed: 02/07/2018 3:21 PM [email or web address] Electronically signed by: Tarik Kirby M.D. 02/07/2018 3:32 PM Dictated Date/Time: 02/07/2018 2:45 PM
[2018-02-07] MEDS: CEFTRIAXONE SOD INJ 2,000 MG in DEXTROSE 5% 50ML 50 ML IV SCH (18:57)
--- NOTE | 2018-02-07 22:45 | Progress Note ---
Medicine Progress Note Date & Time of Visit: Feb 07, 2018 at 14:50 . Subjective CC: Follow-up visit for altered mental status. HPI: Feels much better. Pt feels that mental status is back to baseline. No fever, headache, photophobia, neck pain. ROS: General- no fever, no chills Resp- no cough; no shortness of breath Cardiac- no chest pain, no edema GI- no nausea, no vomiting, no diarrhea, no constipation - no dysuria . Objective Last 8 Hrs Date Time Temp Pulse Resp B/P (MAP) Pulse Ox O2 Delivery O2 Flow Rate FiO2 02/07/18 16:00 Room Air 02/07/18 15:02 37.0 73 18 134/80 (98) 96 Room Air Physical Exam: General- no distress Neck- supple Lungs- clear to auscultation; no respiratory distress Cardiovascular- RRR; no murmur; no gallop; no JVD; no pretibial edema Abdomen- + bowel sounds, soft, nontender Extremities- no cyanosis; no calf tenderness Neuro- alert, oriented x 3, can name last 3 president, PERRL, EOMI, no facial palsy, motor strength extremities 5/5 Skin- warm & dry . Laboratory Results: Last 24 Hours Test 02/07/18 09:32 Ammonia 31.1 umol/L Assessment & Plan ALTERED MENTAL STATUS Improved. No acute findings on neuroimaging. LP unremarkable except for elevated CSF protein. Neuro consulted. ABNORMAL MRI BRAIN Suspected arachnoid cyst. Will need follow-up with Neurosurgery and follow-up MRI. RECENT LYME DISEASE Almost finished course of doxy. Now receiving ceftriaxone. DISPOSITION Expected discharge to home. . Current Inpatient Medications: Current Inpatient Medications Medications (Trade) Dose Ordered Sig/Terence Route Start Time Stop Time Status Last Admin Dose Admin Miscellaneous (Iv Fluids Completed) 1 ea PRN PRN N/A 02/06/18 15:45 02/06/19 15:44 Ceftriaxone Sodium 2000 mg/ Dextrose 70 ml @ 140 mls/hr Q24H IV 02/06/18 18:30 02/16/18 18:29 02/07/18 18:57 140 MLS/HR Aspirin (Ecotrin Tab) 81 mg DAILY PO 02/07/18 09:00 03/09/18 08:59 02/07/18 07:52 81 MG Ioversol (Optiray 320) 100 ml UD PRN IV 02/06/18 16:15 02/10/18 16:14 Acetaminophen (Tylenol Tab) 650 mg Q4H PRN PO 02/06/18 18:30 03/08/18 18:29 02/06/18 18:41 650 MG Clonidine HCl (Catapres Tab) 0.1 mg Q4 PRN PO 02/06/18 20:30 03/08/18 20:29 02/07/18 06:02 0.1 MG Lorazepam 1 mg/ Syringe 1 ml @ 0.5 mls/min Q2HWA PRN IV 02/06/18 20:30 03/08/18 20:29
[2018-02-07 23:38] VITALS: BP 146/90; PULSE 67; TEMP 36.7; O2SAT 97
[2018-02-08 06:51] LABS: BASO % 0.3 %; BASO ABS # 0.02 K/uL (0-0.2); EOS % 2.8 %; EOS ABS # 0.16 K/uL (0-0.5); HEMATOCRIT 49.2 % (42-52); HEMOGLOBIN 16.9 g/dL (14.0-18.0); IG# 0.02 K/uL (0.00-0.02); LYMPH % 31.2 %; LYMPH ABS # 1.81 K/uL (1.2-3.4); MEAN CELL VOLUME 100.4 fL (80-100); MEAN CORPUSCULAR HEMOGLOBIN 34.5 pg (25-34); MEAN CORPUSCULAR HGB CONC 34.3 g/dl (32-36); MEAN PLATELET VOLUME 9.7 fL (7.4-10.4); MONO ABS # 0.64 K/uL (0.11-0.59); NEUT % 54.4 %; NEUT ABS # 3.16 K/uL (1.4-6.5); PLATELET COUNT 166 K/uL (130-400); RED CELL DISTRIBUTION WIDTH CV 13.4 % (11.5-14.5); RED CELL DISTRIBUTION WIDTH SD 49.5 fL (36.4-46.3); WHITE BLOOD COUNT 5.81 K/uL (4.8-10.8)
--- NOTE | 2018-02-08 07:10 | Progress Note ---
Progress Note Date of Service Feb 08, 2018. Progress Note ID Consult Dictated #[id number] A/P: 1. Lyme Disease - diagnosed prior to admission -Can continue rocephin for now, csf culture negative to date -No evidence of lyme meningitis, can d/c on po doxy 100mg po bid x additional 14 days -thank you
[2018-02-08 07:15] VITALS: BP 153/92; PULSE 74; TEMP 36.6; O2SAT 95
[2018-02-08 07:30] LABS: ALBUMIN 3.2 gm/dl (3.4-5.0); CALCIUM 8.9 mg/dl (8.5-10.1); CREATININE 0.76 mg/dl (0.60-1.40); POTASSIUM 4.2 mmol/L (3.5-5.1); TOTAL PROTEIN 6.6 gm/dl (6.4-8.2)
--- NOTE | 2018-02-08 08:17 | INFECT. DISEASE CONSULTATION ---
DATE OF CONSULTATION: 02/08/2018 HISTORY OF PRESENT ILLNESS: This is a 57-year-old gentleman who was admitted secondary to confusion. This has been going on for several months per the H and P. Today, he states he is feeling better. He is up and ambulating in his room on my examination. He was recently diagnosed with lung disease and placed on a course of doxycycline. He states that he was given a 21-day course and was on day 20 when he came into the hospital. He recently saw his PCP on 01/14, and at that time, he had headaches, myalgias, joint pain and at that time a Lyme titer was done. He denies any known tick bites. 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 He will have outpatient neuro followup for that. He currently denies any fevers or chills. He was placed empirically on Rocephin and an LP was done. His LP was unremarkable. His CSF cultures are negative. He has been afebrile. He states he is having intermittent headaches that come and go, but overall states they are improving. He denies any fevers or chills currently. He denies any arthralgias or myalgias. He denies any chest pain, cough, shortness of breath, nausea, vomiting, diarrhea. His appetite has been stable. REVIEW OF SYSTEMS: His remaining review of systems is reviewed and unremarkable. PAST MEDICAL HISTORY: Significant for degenerative joint disease, hyperlipidemia. PAST SURGICAL HISTORY: Significant for tooth extraction and tonsillectomy. FAMILY HISTORY: Unremarkable. SOCIAL HISTORY: Significant for daily tobacco use. He does drink. He does use marijuana. ALLERGIES: He has no known drug allergies. CURRENT MEDICATIONS: Aspirin, clonidine, Ativan, Rocephin, Tylenol. PHYSICAL EXAMINATION: VITAL SIGNS: He has been afebrile since admission. Pulse 67, respiratory rate 16, blood pressure 146/90, oxygen saturation is 97% on room air. GENERAL: He is awake, alert and oriented x3. He is in no acute distress. HEENT: Mucous membranes are moist. Extraocular muscles are intact. There is no nuchal rigidity. HEART: Regular. LUNGS: Clear bilaterally. ABDOMEN: Soft, nontender, nondistended. There is no lower extremity edema. SKIN: Without rash. LABORATORY STUDIES: CBC today, white blood cell count 5.8, hemoglobin 16.9, platelets 166. Chemistry panel from the 3rd, sodium 137, potassium 4.1, chloride 105, bicarbonate 26, BUN 10, creatinine 0.85, glucose 96. LFTs were normal with a mild elevation of AST at 41. TSH is normal. UA was negative. A urine screen for marijuana is pending. CSF showed clear colorless fluid with only 1 WBC, glucose was normal, protein was mildly elevated at 55. Lyme titer is pending. RPR is negative. Hepatitis C antibody is negative. HIV is pending. CSF fluid is negative. CT of the chest was unremarkable. Abdomen and pelvis CAT scan showed a mildly enlarged prostate. He had an MRI of the lumbar spine and cervical spine which were unremarkable. ASSESSMENT AND PLAN: Previously diagnosed Lyme disease. He can remain on Rocephin; however, he does not show any signs of meningitis. I would suggest transitioning to oral doxycycline for an additional 14 days for a previously diagnosed Lyme disease. Thank you for this consultation.
[2018-02-08] MEDS: ASPIRIN 81 MG ECTAB PO SCH (08:42)
--- NOTE | 2018-02-08 13:22 | PROGRESS NOTE ---
DATE: 02/08/2018 I am seeing Mr. Matthews in followup of confusion of unclear etiology. 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 CSF is no growth to date. His antithyroid antibodies remain pending. B12, folate, TSH are normal. He awaits an EEG, indicates he felt achy again overnight with some mild headache. He was mildly tearful, but he is awake and alert, oriented, following commands whereas previously he may have had some numbness below the left knee that does not appear to be the case and perhaps if there is any sensory abnormality there is decreased temperature on the right leg. His MRI of the cervical spine done because of numbness in the posterior occiput shows a normal cord, cervical spondylolysis and multilevel degenerative changes. MRI of the L-spine done because of the aforementioned numbness in the leg does show some discogenic changes. There is some soft tissue edema at L2-3, may be related to recent instrumentation, from my perspective that is probably from the lumbar puncture. IMPRESSION: Recent cognitive dysfunction, possibly related to a mild encephalopathy from infection, but not central nervous system Lyme. PLAN: Monitor his improvement. EEG tomorrow. Further workup will depend on how back to baseline mentation is. Dr. Lynne had been concerned that he could have an autoimmune encephalopathy. He is not particularly encephalopathic at this point. Fortunately, there is no evidence of a malignancy. CSF is normal save a mildly elevated total protein. If there continues to be cognitive issues and EEG is not revealing, it may be reasonable to do some outpatient paraneoplastic antibodies as well as some antibodies for autoimmune encephalopathy. We will follow with you. CYNTHIA
[2018-02-08 15:40] VITALS: BP 133/80; PULSE 63; TEMP 37; O2SAT 98
[2018-02-08] MEDS: CEFTRIAXONE SOD INJ 2,000 MG in DEXTROSE 5% 50ML 50 ML IV SCH (18:02)
--- NOTE | 2018-02-08 18:34 | DIAGNOSTIC IMAGING REPORT ---
CHEST 2 VIEWS ROUTINE CLINICAL HISTORY: cough dyspnea COMPARISON STUDY: 02/06/2018 FINDINGS: The bones soft tissues and hemidiaphragms are normal. The cardiomediastinal silhouette is normal. The lungs are clear. The pulmonary vasculature is normal. IMPRESSION: Negative chest. The above report was generated using voice recognition software. It may contain grammatical, syntax or spelling errors. Electronically signed by: Abraham Mayes M.D. 02/08/2018 6:33 PM Dictated Date/Time: 02/08/2018 6:32 PM
--- NOTE | 2018-02-08 22:43 | Progress Note ---
Medicine Progress Note Date & Time of Visit: Feb 08, 2018 at 14:00 . Subjective CC: Follow-up visit for altered mental status. HPI: Headache this morning, improved. No photophobia, neck pain, nausea, vomiting. Intermittent congested cough. Intermittent mid chest discomfort, ? worse with coughing. Chronic RUE paresthesiae ( x years). ROS: General- no fever, no chills Resp- as noted above in HPI Cardiac- as noted above in HPI GI- no nausea, no vomiting, no diarrhea . Objective Last 8 Hrs Date Time Temp Pulse Resp B/P (MAP) Pulse Ox O2 Delivery O2 Flow Rate FiO2 02/08/18 16:45 Room Air 02/08/18 15:40 37.0 63 18 133/80 (97) 98 Room Air Physical Exam: General- lying in bed; no distress Neck- supple Lungs- few scattered rhonchi; no respiratory distress Cardiovascular- RRR; no murmur; no gallop; no JVD; no pretibial edema Abdomen- + bowel sounds, soft, nontender Extremities- no cyanosis; no calf tenderness Neuro- alert, oriented x 3, PERRL, EOMI, no facial palsy, motor strength extremities 5/5 Skin- warm & dry . Laboratory Results: Last 24 Hours Test 02/08/18 06:40 White Blood Count 5.81 K/uL Red Blood Count 4.90 M/uL Hemoglobin 16.9 g/dL Hematocrit 49.2 % Mean Corpuscular Volume 100.4 fL Mean Corpuscular Hemoglobin 34.5 pg Mean Corpuscular Hemoglobin Concent 34.3 g/dl Platelet Count 166 K/uL Mean Platelet Volume 9.7 fL Neutrophils (%) (Auto) 54.4 % Lymphocytes (%) (Auto) 31.2 % Monocytes (%) (Auto) 11.0 % Eosinophils (%) (Auto) 2.8 % Basophils (%) (Auto) 0.3 % Neutrophils # (Auto) 3.16 K/uL Lymphocytes # (Auto) 1.81 K/uL Monocytes # (Auto) 0.64 K/uL Eosinophils # (Auto) 0.16 K/uL Basophils # (Auto) 0.02 K/uL RDW Standard Deviation 49.5 fL RDW Coefficient of Variation 13.4 % Immature Granulocyte % (Auto) 0.3 % Immature Granulocyte # (Auto) 0.02 K/uL Sodium Level 140 mmol/L Potassium Level 4.2 mmol/L Chloride Level 106 mmol/L Carbon Dioxide Level 27 mmol/L Anion Gap 6.0 mmol/L Blood Urea Nitrogen 11 mg/dl Creatinine 0.76 mg/dl Est Creatinine Clear Calc Drug Dose 107.3 ml/min Estimated GFR () 117.4 Estimated GFR (Non- 101.3 BUN/Creatinine Ratio 14.5 Random Glucose 98 mg/dl Calcium Level 8.9 mg/dl Total Bilirubin 0.5 mg/dl Aspartate Amino Transf (AST/SGOT) 33 U/L Alanine Aminotransferase (ALT/SGPT) 33 U/L Alkaline Phosphatase 78 U/L Total Protein 6.6 gm/dl Albumin 3.2 gm/dl Globulin 3.4 gm/dl Albumin/Globulin Ratio 0.9 Assessment & Plan ALTERED MENTAL STATUS Improved. No acute findings on neuroimaging. LP unremarkable except for slightly elevated CSF protein. Neuro consulted. Brother visiting; he feels that patient is not yet back to his baseline mental status. ABNORMAL MRI BRAIN MRI demonstrated a 2.3 x 2.9 rounded cystic structure in the central cerebellum. Per Radiology, appearances consistent with an arachnoid cyst, cystic neoplasm less likely. Will need follow-up with Neurosurgery and follow-up MRI. RECENT LYME DISEASE Almost finished course of doxy. Now receiving ceftriaxone. Uncertain whether or not current symptoms are related to Lyme disease. ID and Neuro consulted. JACQUI PARESTHESIAE Patient experiencing right upper extremity symptoms for the past few years. MRI cervical spine demonstrated multilevel disc/degenerative disease. Consider outpatient EMG/nerve conduction velocity for further evaluation. CHEST PAIN No acute changes on EKG. COUGH No infiltrates on chest x-ray. TOBACCO USE Smoking cessation recommended. Nicotine patch during hospital stay. VTE PROPHYLAXIS Anticoagulants not utilized because of LP. SCD's. Ambulate. DISPOSITION Expected discharge to home. Primary care follow-up with Dr. Moctezuma. . Current Inpatient Medications: Current Inpatient Medications Medications (Trade) Dose Ordered Sig/Terence Route Start Time Stop Time Status Last Admin Dose Admin Miscellaneous (Iv Fluids Completed) 1 ea PRN PRN N/A 02/06/18 15:45 02/06/19 15:44 Ceftriaxone Sodium 2000 mg/ Dextrose 70 ml @ 140 mls/hr Q24H IV 02/06/18 18:30 02/16/18 18:29 02/08/18 18:02 140 MLS/HR Aspirin (Ecotrin Tab) 81 mg DAILY PO 02/07/18 09:00 03/09/18 08:59 02/08/18 08:42 81 MG Ioversol (Optiray 320) 100 ml UD PRN IV 02/06/18 16:15 02/10/18 16:14 Acetaminophen (Tylenol Tab) 650 mg Q4H PRN PO 02/06/18 18:30 03/08/18 18:29 02/06/18 18:41 650 MG Clonidine HCl (Catapres Tab) 0.1 mg Q4 PRN PO 02/06/18 20:30 03/08/18 20:29 02/07/18 06:02 0.1 MG Lorazepam 1 mg/ Syringe 1 ml @ 0.5 mls/min Q2HWA PRN IV 02/06/18 20:30 03/08/18 20:29
[2018-02-08 23:59] VITALS: BP 126/83; PULSE 57; TEMP 36.8; O2SAT 98
[2018-02-09] MEDS: ASPIRIN 81 MG ECTAB PO SCH (07:45)
[2018-02-09 07:50] VITALS: BP 143/92; PULSE 81; TEMP 36.4; O2SAT 94
[2018-02-09] MEDS: ACETAMINOPHEN 325 MG TAB PO PRN (08:49)
[2018-02-09] MEDS ORDERED: NICOTINE 14 MG/24 HR TDSY TD SCH (09:00)
[2018-02-09 15:36] VITALS: BP 147/89; PULSE 72; TEMP 36.7; O2SAT 95
[2018-02-09 16:00] VITALS: O2SAT 95
--- NOTE | 2018-02-09 16:41 | Neurology Progress Notes ---
Neurology Progress Note Date of Service Feb 09, 2018. Alissa Gerard is a 57 year old male who has no significant PMH presented to [facility] after an evaluation at neurology for increased confusion. He tested + for Lyme and was treated with Doxycycline prior to the neurology appointment. He was sent to the ED for a LP to evaluate for CSF lyme, MRI and other labs which have all been negative. He has a heavy beer consumption which 12-18 beers per week. Currently he states he is doing good and feels he is back to his baseline. denies CP, SOB, abdominal pain, weakness, numbness tingling, vision changes, headache, falls, N, V, weight loss or gain. 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 5/5 hip flex patellar plantar flex /ext 5/5 neuro: oriented to presmerissa Jang, year 2017, summer, lives in , [facility] reflexes bilaterally symmetric Current Inpatient Medications Medications (Trade) Dose Ordered Sig/Terence Route Start Time Stop Time Status Last Admin Dose Admin Miscellaneous (Iv Fluids Completed) 1 ea PRN PRN N/A 02/06/18 15:45 02/06/19 15:44 Ceftriaxone Sodium 2000 mg/ Dextrose 70 ml @ 140 mls/hr Q24H IV 02/06/18 18:30 02/16/18 18:29 02/08/18 18:02 140 MLS/HR Aspirin (Ecotrin Tab) 81 mg DAILY PO 02/07/18 09:00 03/09/18 08:59 02/09/18 07:45 81 MG Ioversol (Optiray 320) 100 ml UD PRN IV 02/06/18 16:15 02/10/18 16:14 Acetaminophen (Tylenol Tab) 650 mg Q4H PRN PO 02/06/18 18:30 03/08/18 18:29 02/09/18 08:49 650 MG Clonidine HCl (Catapres Tab) 0.1 mg Q4 PRN PO 02/06/18 20:30 03/08/18 20:29 02/07/18 06:02 0.1 MG Lorazepam 1 mg/ Syringe 1 ml @ 0.5 mls/min Q2HWA PRN IV 02/06/18 20:30 03/08/18 20:29 Nicotine (Nicoderm Cq 14MG Patch) 1 patch QAM TD 02/09/18 09:00 03/11/18 08:59 02/09/18 08:49 1 PATCH Miscellaneous (Remove Nicoderm Patch) 1 ea HS N/A 02/09/18 21:00 03/11/18 20:59 02/09/18 15:17 1 EA Impression 57 year old male s/p encephalopathic confusion +lyme testing Plan 1. follow up with PCP as scheduled 2. follow up with neurology in 2-3 weeks-Dr Lynne 3. ID consult to continue doxy for another 14 days 4. EtOH cessation strongly urged 5. tobacco abuse cessation strongly urged 6. ok to discharge to home once medically stable I have seen and discussed above patient with Dr Kia Bashir, neurology Pt seen, discussed with friend Aviva. Pt is back to baseline. Awake, alert, gait unremarkable. Ok to dc, follow-up post dc with Dr Haider Sarabia Thyroid ab are positive. Will need to be reviewed, evaluated as outpt. ADILIA Bashir MD
[2018-02-09 17:05] VITALS: BP 147/89; PULSE 72; TEMP 36.7; O2SAT 95
--- NOTE | 2018-02-09 17:16 | Progress Note ---
Medicine Progress Note Date & Time of Visit: Feb 09, 2018 at 17:10. Subjective seen resting in bed, comfortable alert, oriented x 3, not in distress in good spirits states he feels fine overall denies confusion no other symptoms states he is back to his usual self states he is ready and would like to be discharge today Objective Last 8 Hrs Date Time Temp Pulse Resp B/P (MAP) Pulse Ox O2 Delivery O2 Flow Rate FiO2 02/09/18 17:05 36.7 72 17 95 Room Air 02/09/18 16:00 95 Room Air 02/09/18 15:36 36.7 72 17 147/89 (108) 95 Room Air Physical Exam: General- oriented x 3, not in distress, speaks in sentences Head- atraumatic Eyes- anicteric Neck- supple, no JVD Lungs- clear to auscultation bilaterally, no rales/wheezes Heart- regular rhythm; no murmur, normal rate Abdomen- normal bowel sounds, soft, nontender Extremities- no pretibial edema, no calf tenderness Neuro- alert, oriented x 3; no gross focal deficits Skin- warm & dry Assessment & Plan ALTERED MENTAL STATUS resolved No acute findings on neuroimaging. LP unremarkable except for slightly elevated CSF protein. Neuro consulted Dr. Bashir felt to be related to Lyme Disease ID consulted, recommend another 2 weeks of Doxycycline PO Sister visiting- patient at baseline ABNORMAL MRI BRAIN MRI demonstrated a 2.3 x 2.9 rounded cystic structure in the central cerebellum. Per Radiology, appearances consistent with an arachnoid cyst, cystic neoplasm less likely. Will need follow-up with Neurosurgery and follow-up MRI. RECENT LYME DISEASE received IV Ceftriaxone ID consulted, recommend another 2 weeks of Doxycycline PO in light of presentation- altered mental status RUE PARESTHESIAE Patient experiencing right upper extremity symptoms for the past few years. MRI cervical spine demonstrated multilevel disc/degenerative disease. Consider outpatient EMG/nerve conduction velocity for further evaluation. CHEST PAIN No acute changes on EKG. COUGH No infiltrates on chest x-ray. resolved TOBACCO USE Smoking cessation recommended. Nicotine patch given VTE PROPHYLAXIS Anticoagulants not utilized because of LP. SCD's. Ambulate. DISPOSITION d/c home Primary care follow-up with Dr. Moctezuma in 3-5 days Follow up with Neurologist in [address] Lynne. . Current Inpatient Medications: Current Inpatient Medications Medications (Trade) Dose Ordered Sig/Terence Route Start Time Stop Time Status Last Admin Dose Admin Miscellaneous (Iv Fluids Completed) 1 ea PRN PRN N/A 02/06/18 15:45 02/06/19 15:44 Ceftriaxone Sodium 2000 mg/ Dextrose 70 ml @ 140 mls/hr Q24H IV 02/06/18 18:30 02/16/18 18:29 02/08/18 18:02 140 MLS/HR Aspirin (Ecotrin Tab) 81 mg DAILY PO 02/07/18 09:00 03/09/18 08:59 02/09/18 07:45 81 MG Ioversol (Optiray 320) 100 ml UD PRN IV 02/06/18 16:15 02/10/18 16:14 Acetaminophen (Tylenol Tab) 650 mg Q4H PRN PO 02/06/18 18:30 03/08/18 18:29 02/09/18 08:49 650 MG Clonidine HCl (Catapres Tab) 0.1 mg Q4 PRN PO 02/06/18 20:30 03/08/18 20:29 02/07/18 06:02 0.1 MG Lorazepam 1 mg/ Syringe 1 ml @ 0.5 mls/min Q2HWA PRN IV 02/06/18 20:30 03/08/18 20:29 Nicotine (Nicoderm Cq 14MG Patch) 1 patch QAM TD 02/09/18 09:00 03/11/18 08:59 02/09/18 08:49 1 PATCH Miscellaneous (Remove Nicoderm Patch) 1 ea HS N/A 02/09/18 21:00 03/11/18 20:59 02/09/18 15:17 1 EA
[2018-02-09] MEDS ORDERED: DXY100 PO (17:22)
--- NOTE | 2018-02-09 17:25 | Discharge Instructions ---
Discharge Instructions Date of Service Feb 09, 2018. Admission Reason for Admission: Encephalopathy Acute Discharge Discharge Diagnosis / Problem: ACUTE ENCEPHALOPATHY Discharge Goals Goal(s): Diagnostic testing, Therapeutic intervention Activity Recommendations Activity Limitations: as noted below (NO HEAVY EXERTION UNTIL RE-EVALUATED BY PRIMARY CARE PHYSICIAN.) Lifting Limitations: until after follow-up appointment Exercise/Sports Limitations: until after follow-up appointment Driving or Machine Use: NO DRIVING UNTIL RE-EVALUATED BY PRIMARY CARE PHYSICIAN . Instructions / Follow-Up Instructions / Follow-Up PLEASE REVIEW YOUR NEW MEDICATION LIST AND FOLLOW INSTRUCTIONS CAREFULLY. ENSURE ADEQUATE DAILY FLUID INTAKE. ALWAYS INCLUDE YOGURT IN YOUR DAILY DIET. NO SMOKING OR ALCOHOL. CALL PRIMARY CARE PHYSICIAN OR RETURN TO ER IMMEDIATELY IF WITH RECURRENCE/ WORSENING OF SYMPTOMS. FOLLOW UP WITH DR. WATERMAN ON Friday02/13/18 AT 10:15AM. FOLLOW UP WITH NEUROLOGIST DR. BUTLER IN 2 WEEKS. Current Hospital Diet Patient's current hospital diet: Regular Diet Discharge Diet Recommended Diet: Regular Diet Procedures Procedures Performed: BRAIN MRI, CERVICAL AND LUMBAR SPINE MRI Pending Studies Studies pending at discharge: no Medical Emergencies . Who to Call and When: Medical Emergencies: If at any time you feel your situation is an emergency, please call 911 immediately. . Non-Emergent Contact Non-Emergency issues call your: Primary Care Provider, Neurologist Call Non-Emergent contact if: you have a fever, you have any medication questions . . "Provider Documentation" section prepared by Anthony Feldman. .
--- NOTE | 2018-02-10 15:01 | ELECTROENCEPHALOGRAPH REPORT ---
PROCEDURE: EEG. REQUESTED BY: For Kia Penn PA-C and Kia Bashir MD CLINICAL DIAGNOSES: Episodic confusion and dizziness. ELECTROENCEPHALOGRAM DIAGNOSIS: Essentially normal during wakefulness. DESCRIPTION OF TRACING: This EEG is performed as a bedside recording and is of good technical quality. A simultaneous video analysis of the patient movement and behavior was not available. During wakefulness, there is evidence for a normal appearing background rhythm in the alpha range of about 9 Hz of maximum frequency and 30-40 microvolts of maximum amplitude. This is symmetrical and bilaterally present in the occipital regions predominantly. Central polymorphic mid frequency modest voltage theta activity is seen in a symmetrical fashion as well. Beta activity is seen bifrontally and symmetrically. Photic stimulation provoked some modest driving response without a photomyogenic or photoparoxysmal component. Hyperventilation was not performed. Drowsiness and light sleep were not obtained. At no time during the tracings are clear evidence for potentially epileptogenic activity in the form of polyspike or spike wave bursts, focal sharp waves or focal spikes. INTERPRETATION: This EEG is essentially normal during wakefulness without evidence for focal or generalized encephalopathy and without evidence for potentially epileptogenic activity. MTDD
--- NOTE | 2018-02-10 21:28 | Discharge Summary ---
Discharge Summary Date of Service Feb 10, 2018. Discharge Summary Admission Date: Feb 06, 2018 at 15:16 Discharge Date: Feb 09, 2018 Discharge Disposition: Home Principal Diagnosis: ALTERED MENTAL STATUS, possibly encephalopathy from Lyme disease Secondary Diagnoses/Problems: Please refer to hospital course below. Procedures: Status post lumbar tap; MRI OF THE BRAIN COMBO CLINICAL HISTORY: Acute encephalopathy. Dizziness. Change in mental status. COMPARISON STUDY: CT of the brain dated 02/06/2018. TECHNIQUE: MRI of the brain was performed utilizing various T1 and T2-weighted sequences in the axial, sagittal, and coronal planes. Contrast-enhanced sequences were acquired following the administration of 7 cc of Gadavist. FINDINGS: Brain parenchyma: There is minimal subcortical and periventricular microangiopathic change. There is a 2.3 x 2.9 cm round cystic structure identified in the central cerebellum. This follows CSF signal intensity on all sequences. There is no nodular or enhancing component of this lesion. There is no hemorrhage or mass effect. There is no restricted diffusion to suggest acute ischemia. No enhancing mass lesion is identified on the postcontrast images. Levin-white matter differentiation is preserved. No extra-axial fluid collection is seen. The cerebellar tonsils are normal in configuration. Ventricles, sulci, and cisterns: Normal in configuration. Pituitary and sella: Unremarkable. Intracranial vasculature: Normal flow voids are maintained at the skull base. Orbits: The bony orbits are grossly intact. Orbital contents are normal in appearance. Sinuses and mastoids: There is mild mucosal thickening and fluid within the left maxillary antrum. Trace mucosal thickening is seen in the frontal and ethmoid sinuses. The mastoid air cells are clear. Calvarium: Unremarkable. Cervical cord: Partially visualized cervical spinal cord is normal in morphology and signal intensity. IMPRESSION: 1. There is no hemorrhage, midline shift, or evidence of acute ischemia. 2. There is a 2.9 cm round cystic lesion identified in the central cerebellum. This follows CSF signal intensity on all sequences and shows no nodular or enhancing component. There is no significant mass effect. The appearance is most suggestive of an arachnoid cyst. A cystic neoplasm is considered much less likely given the lack of a soft tissue component/nodule. Nonemergent neurosurgical follow-up is recommended. A precautionary follow-up MRI of the brain in 3-6 months is also recommended for reassessment. CT SCAN OF THE CHEST, ABDOMEN, AND PELVIS WITH IV CONTRAST CLINICAL HISTORY: Change in mental status. Encephalopathy. COMPARISON STUDY: Chest x-ray dated 02/06/2018. TECHNIQUE: Following the IV administration of 92 of Optiray 320, CT scan of the chest, abdomen, and pelvis was performed from the thoracic inlet to the proximal femora. Images are reviewed in the axial, sagittal, and coronal planes. IV contrast was administered without complication. A dose lowering technique was utilized adhering to the principles of ALARA. CT DOSE: 496.93 mGy.cm FINDINGS: CHEST: Thyroid: Imaged portions of the thyroid gland are normal in size and attenuation. Thoracic aorta: There is mild atherosclerotic calcification of the thoracic aorta, which is normal in caliber and demonstrates bovine variant arch anatomy. No dissection is seen. Heart: The heart is top normal in size and without pericardial effusion. There are coronary artery calcifications. The pulmonary trunk is normal in caliber. Lungs and pleural spaces: Emphysematous change is identified. No airspace consolidation or pleural effusion is seen. The trachea is clear. Secretions are seen within the mainstem bronchi. Mild diffuse peribronchial thickening is noted. A punctate calcified granuloma is seen in the right lower lobe. Mediastinum: There is no mediastinal lymphadenopathy. Shannon: Clear. Axillae: There is no axillary lymphadenopathy. Bony thorax: No lytic or blastic lesions are identified. ABDOMEN AND PELVIS: Liver: The contrast-enhanced liver is enlarged, measuring 18.4 cm in length. The liver demonstrates diffusely diminished attenuation consistent with hepatic steatosis. Mild nodularity of the surface contour suggests early change of cirrhosis. There is no intrahepatic or ductal dilatation. The hepatic veins and portal veins are patent. Gallbladder: Unremarkable. Spleen: Normal in size and attenuation. Pancreas: Unremarkable. Adrenal glands: Unremarkable. Kidneys: The contrast enhanced kidneys are normal in size and without hydronephrosis. The kidneys enhance symmetrically. A retroaortic left renal vein is incidentally noted. Abdominal vasculature: The abdominal aorta is normal in course and caliber noting moderate atherosclerotic calcification. Bowel: There is mild colonic diverticulosis without CT evidence of acute diverticulitis. No bowel obstruction is seen. The appendix is well-visualized and normal. Peritoneum: There is no intraperitoneal free air or abdominal ascites. There is a small fat-containing umbilical hernia. Lymphadenopathy: None. Pelvic viscera: The prostate gland is mildly enlarged and heterogeneous. The bladder is normal as imaged. Excreted contrast is noted in the bladder lumen. Skeletal structures: There is mild lumbosacral spondylosis. No lytic or blastic lesions are seen. IMPRESSION: 1. Emphysema. 2. There is no airspace consolidation or pleural effusion. 3. Mild diffuse peribronchial thickening suggests reactive air disease. Clinical correlation will be required. 4. There are no acute infectious or inflammatory findings in the abdomen or pelvis. 5. The liver is enlarged and steatotic. 6. There is nodularity of the hepatic surface contour suggesting early changes of cirrhosis. 7. Mild colonic diverticulosis without CT evidence of acute diverticulitis. 8. Additional findings as above. Cervical spine MRI IMPRESSION: 1. The cervical spinal cord is normal in morphology and signal intensity. 2. Cervical spondylosis as above, greatest at C5-C6 and C6-C7. See discussion for detailed [id number] analysis. Lumbar spine MRI IMPRESSION: 1. There is no disc herniation or significant acquired compromise of the central canal. 2. Multilevel spondylosis as above. See discussion for detailed [id number] analysis. 3. Degenerative disc disease and endplate change as above. 4. There is nonspecific interspinous soft tissue edema seen at L2-L3. This may be related to recent instrumentation. Clinical correlation will be required. Consultations: Neurologist Dr. Abad Pending Studies/Follow-Up: Patient needs to be referred to a neurosurgeon for the arachnoid cyst cyst. Please refer to hospital course below for further details. Medication Reconciliation New Medications: Doxycycline Hyclate (Doxycycline Hyclate) 100 Mg Cap 1 CAP PO BID for 14 Days, #28 CAP 0 Refills Continued Medications: Doxycycline (Monohydrate) (Doxycycline) Unknown Strength Cap 1 CAP PO BID CURRENTLY TAKING FOR LYMES DISEASE Discontinued Medications: Aspirin (Aspirin Ec) 81 Mg Tab 81 MG PO DAILY Admission Information HPI (per Admitting provider): This is a 57-year-old white male, who is under recent care of Dr. Gómez Loving , with no significant past medical history who presents to [facility] with confusion x 2.5-3 weeks. He has not followed with a physician for many years. Of significant note back on 01/14/18 he presented to PCP secondary to headaches, myalgias, joint aches, chest pain, sob. Patient had thorough workup which included Lyme panel which was positive for IgG 10 bands and + IgM, CT brain on 01/20 which was relatively unremarkable, MRI on brain which showed are 2.8cm posterior fossa cyst, likely arachnoid cyst, increased periventricular white matter likely small vessel ischemic disease, mild sinusitis, vitamin B12 525, negative JAMESON, rheumatoid factor 11, vitamin D 59, H&H 17.9 and 53.8, white blood cell count 7.5, AST 54 sodium 141, potassium 4.8, BUN 9, creatinine 0.8, glucose 92. He denies history of tick or insect bite. He was employed through [employer] but has been off work since December. He was sent to neurology for further evaluation secondary to headaches, positive MRI by neurology Dr. Haider Lynne seen today and patient was observed to be confused. Confusion has been reported for the past 2-2.5 weeks therefore patient was sent to ED for further workup for possible Lyme encephalitis. Lady friend is at bedside, provides some history. Apparently over the past 2-2.5 weeks patient has become more confused, not acting himself, difficulty with short-term memory and activities of daily living. Per friend he has been getting lost, usually he is very neat and his house is a mass, staggering gait. Patient states he has not been himself since October which he took a week off from work symptoms seemed to go away. They came back in November therefore whenever he got "a medical card," he pursued medical attention. He further notes first thing when he wakes up in the morning drinks coffee he gets frontal headache, sweating, nausea that comes and goes. Overall he does not sleep well, decreased appetite, blurred vision increasing the past 2 weeks, he recently got new glasses but has not had an eye exam in over 2 years. He denies any fever, chills, lightheadedness, dizziness, upper respiratory symptoms , chest pain, palpitations, sob, knox, nausea, vomiting, diarrhea, abdominal pain. When asked about tobacco and alcohol use initially he stated that he would drink occasionally, with further investigation he stated he went to the club daily and will drink approximately 12-18 beers a week on average. His last drink was when starting his antibiotic on January 15, he has one dose of doxycycline left. Upon initial evaluation workup revealed unremarkable CMP except AST elevation 41, troponin, CK, lipase all within range, hemoglobin 18.1. LP was performed which showed elevated protein of 55.3, Gram stain is pending. Initial Lyme titer positive. Chest x-ray negative for acute disease and head CT showing mild paranasal disease but otherwise unremarkable. He is being admitted for further workup of encephalopathy. Physical Exam (per Admitting): General Appearance: WD/WN, no apparent distress Head: normocephalic, atraumatic Eyes: normal inspection, PERRL, EOMI, sclerae normal (mild conjunctival injection laterally ) ENT: normal ENT inspection (hard of hearing, left hearing aides at home), pharynx normal, + pertinent finding Neck: supple, no adenopathy, thyroid normal (Mucous members moist), no JVD, no carotid bruits, trachea midline Respiratory/Chest: chest non-tender, lungs clear, normal breath sounds, no respiratory distress, no accessory muscle use Cardiovascular: regular rate, rhythm, no edema, no gallop, no JVD, no murmur , normal peripheral pulses Abdomen/GI: normal bowel sounds, non tender, soft, no organomegaly, no pulsatile mass Back: no CVA tenderness, no muscle spasm, normal range of motion Extremities/Musculoskelatal: normal inspection, no calf tenderness, normal capillary refill, no pedal edema, normal range of motion, non-tender 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, no motor/sensory deficits, + abnormal cerebellar tests (Difficulty with fine motor movements), + abnormal gait (Shuffling gait, unsteady), + motor weakness (Upper extremity abductor/ adductor weakness to shoulder bilaterally), + disoriented (He is alert to self, year was January, initially thought he was in [place] and reoriented to [employer]) Skin: normal color (Overall red color to face and anterior thorax), warm/dry , no rash Lymphatic: no adenopathy Hospital Course (1) Encephalopathy acute (2) Lyme disease (3) Tobacco abuse (4) Elevated blood pressure reading without diagnosis of hypertension (5) Hyperlipemia ALTERED MENTAL STATUS resolved No acute findings on neuroimaging. LP unremarkable except for slightly elevated CSF protein. EEG unremarkable Neuro consulted Dr. Bashir felt to be related to Lyme Disease ID consulted, recommend another 2 weeks of Doxycycline PO ABNORMAL MRI BRAIN MRI demonstrated a 2.3 x 2.9 rounded cystic structure in the central cerebellum. Per Radiology, appearances consistent with an arachnoid cyst, cystic neoplasm less likely. Will need follow-up with Neurosurgery and follow-up MRI. RECENT LYME DISEASE received IV Ceftriaxone ID consulted, recommend another 2 weeks of Doxycycline PO in light of presentation- altered mental status RUE PARESTHESIAE Patient experiencing right upper extremity symptoms for the past few years. MRI cervical spine demonstrated multilevel disc/degenerative disease. Consider outpatient EMG/nerve conduction velocity for further evaluation. CHEST PAIN No acute changes on EKG. COUGH No infiltrates on chest x-ray. resolved TOBACCO USE Smoking cessation recommended. Nicotine patch given DISPOSITION d/c home Primary care follow-up with Dr. Moctezuma in 3-5 days Follow up with Neurologist in [address] Lynne. . Total time spent on discharge = This includes examination of the patient, discharge planning, medication reconciliation, and communication with other providers. Discharge Instructions Discharge Instructions Date of Service Feb 09, 2018. Admission Reason for Admission: Encephalopathy Acute Discharge Discharge Diagnosis / Problem: ACUTE ENCEPHALOPATHY Discharge Goals Goal(s): Diagnostic testing, Therapeutic intervention Activity Recommendations Activity Limitations: as noted below (NO HEAVY EXERTION UNTIL RE-EVALUATED BY PRIMARY CARE PHYSICIAN.) Lifting Limitations: until after follow-up appointment Exercise/Sports Limitations: until after follow-up appointment Driving or Machine Use: NO DRIVING UNTIL RE-EVALUATED BY PRIMARY CARE PHYSICIAN . Instructions / Follow-Up Instructions / Follow-Up PLEASE REVIEW YOUR NEW MEDICATION LIST AND FOLLOW INSTRUCTIONS CAREFULLY. ENSURE ADEQUATE DAILY FLUID INTAKE. ALWAYS INCLUDE YOGURT IN YOUR DAILY DIET. NO SMOKING OR ALCOHOL. CALL PRIMARY CARE PHYSICIAN OR RETURN TO ER IMMEDIATELY IF WITH RECURRENCE/ WORSENING OF SYMPTOMS. FOLLOW UP WITH DR. LOVING ON Friday02/13/18 AT 10:15AM. FOLLOW UP WITH NEUROLOGIST DR. LYNNE IN 2 WEEKS. Current Hospital Diet Patient's current hospital diet: Regular Diet Discharge Diet Recommended Diet: Regular Diet Procedures Procedures Performed: BRAIN MRI, CERVICAL AND LUMBAR SPINE MRI Pending Studies Studies pending at discharge: no Medical Emergencies . Who to Call and When: Medical Emergencies: If at any time you feel your situation is an emergency, please call 911 immediately. . Non-Emergent Contact Non-Emergency issues call your: Primary Care Provider, Neurologist Call Non-Emergent contact if: you have a fever, you have any medication questions . . "Provider Documentation" section prepared by Anthony Feldman.
== END 2018-02-09 18:04 | disposition home or self-care (01) ==
LOC: C.EDB 12:02 → C.MS2W 15:16 → EDBEDREQ 15:32 → ENRESERV 15:39
PROVIDERS: ADMIT Internal Medicine; ATTEND Internal Medicine
DX: G93.40 Encephalopathy, unspecified (principal); A69.20 Lyme disease, unspecified; R05 Cough; R20.2 Paresthesia of skin; F10.20 Alcohol dependence, uncomplicated; E78.5 Hyperlipidemia, unspecified; I10 Essential (primary) hypertension; F17.200 Nicotine dependence, unspecified, uncomplicated; Z79.82 Long term (current) use of aspirin